=== PATIENT | female | born 1980 | race Caucasian/White ===

== ENCOUNTER 2020-10-05 12:50 | Emergency (ER) | payer OTHER, SELFPAY ==
[2020-10-05 12:58] VITALS: BP 111/84; PULSE 99; RESP 16; TEMP 36.8; O2SAT 100
[2020-10-05 13:13] LABS: Add Urine Microscopic? YES; Appearance Urine Cloudy (Clear); Bilirubin Urine Negative (Negative); Blood Urine Negative (Negative); Color Urine Amber (Yellow); Glucose Urine UA Negative (Negative); Ketones Urine Trace mg/dL (Negative); Leukocyte Esterase Ur 1+ LEU/UL (Negative); Mucus Urine Heavy /lpf; Nitrate Urine Negative (Negative); Protein Urine 2+ mg/dL (Negative); Specific Grav Ur 1.033 (1.001-1.035); Squamous Epithelial Cell Urine Moderate /hpf (Few); Urobilinogen Urine Negative mg/dL (<2.0)
--- NOTE | 2020-10-05 13:16 | ED.FEMALEGU ---
HPI - Female Genitourinary General Chief complaint: Urogenital-Female Stated complaint: uti symptoms Time Seen by Provider: 10/05/20 12:57 History of Present Illness HPI Narrative: Patient is a 40-year-old female who presents ER for dysuria beginning this morning. Does not report urinary frequency or urgency or fever. No vaginal discharge or bleeding. No rash or swelling around her vagina. Has not found any aggravating or alleviating factors. Patient has no concerns for STI. No lower abdominal pain. Review of Systems Constitutional: Constitutional: Denies chills Comments: No fevers Gastrointestinal: Gastrointestinal: Denies abdominal pain, Denies nausea and Denies vomiting Genitourinary: Genitourinary: Denies abnormal vaginal bleeding, Denies hematuria, Denies nocturia, Denies genital lesions, Reports dysuria, Denies flank pain and Denies vaginal discharge PMFSH Past Medical History Medical History (Updated 10/05/20 @ 13:44 by Willian Ambrocio MD) Healthy female adult Surgical History Surgical History (Updated 10/05/20 @ 13:17 by Willian Ambrocio MD) History of cholecystectomy Exam Narrative: Exam Narrative: GENERAL: Uncomfortable-appearing, well-nourished, and in no acute distress. HEAD: Normocephalic, atraumatic. CHEST: Clear to auscultation. No respiratory distress. HEART: Regular rate and rhythm. Normal peripheral pulses. ABDOMEN: Soft, nontender, nondistended, no CVA tenderness. EXTREMITIES: Normal range of motion. No edema. NEURO: Alert and oriented x3. PSYCH: Normal mood and affect. Course Vital Signs Vital signs: Vital Signs Temperature 98.2 F 10/05/20 12:58 Pulse Rate 99 10/05/20 12:58 Respiratory Rate 16 10/05/20 12:58 Blood Pressure 111/84 10/05/20 12:58 Pulse Oximetry 100 10/05/20 12:58 Temperature 98.2 F 10/05/20 12:58 Pulse Rate 99 10/05/20 12:58 Respiratory Rate 16 10/05/20 12:58 Blood Pressure 111/84 10/05/20 12:58 Pulse Oximetry 100 10/05/20 12:58 MDM - Female Genitourinary Lab Data Labs: Lab Results 10/05/20 Range/Units 13:03 Urine Color Mya (Yellow) Urine Appearance Cloudy H (Clear) Urine pH 5.0 (5.0-9.0) Ur Specific Sellers 1.033 (1.001-1.035) Urine Protein 2+ H (Negative) mg/dL Urine Glucose (UA) Negative (Negative) mg/dL Urine Ketones Trace (Negative) mg/dL Ur Blood (Man) Negative (Negative) Urine Nitrate Negative (Negative) Urine Bilirubin Negative (Negative) Urine Urobilinogen Negative (<2.0) mg/dL Leukocyte Esterase Rfl 1+ H (Negative) LEÓN/UL Urine RBC 6-10 H (0-2) /hpf Urine WBC 7-9 H /hpf Ur Squamous Epith Cells Moderate H (Few) /hpf Urine Mucus Heavy H /lpf UCG Bedside Result Negative Reference Range: Negative Urine Characteristics Clear Discharge Plan Discharge Clinical Impression: Urinary tract infection Patient Disposition: Home, Self-Care Condition: Stable Instructions: Antibiotic Form, Urinary Tract Infection in Women (ED) Additional Instructions: Return the ER if you have fever over 100.4 ?F, you are unable to urinate, you have increased lower abdominal discomfort, or you have other concerns. Prescriptions: New cephalexin 500 mg capsule 500 mg PO Q12H Qty: 10 RF: 0 Follow-up/Referrals: PHYSICIAN,ACCESS SERVICE REPRESENTATIVE [Primary Care Provider] - Evan Wood MD [Physician] - 1 Week
== END 2020-10-05 14:00 | disposition home or self-care (01) ==
LOC: ANHED 13:48
PROVIDERS: Emergency Provider Emergency Medicine
DX: N39.0 Urinary tract infection, site not specified (principal)
CPT/HCPCS: 81001; 81025; 87086; 99283

== ENCOUNTER 2020-10-12 01:02 | Emergency (ER) | payer OTHER, SELFPAY ==
[2020-10-12 01:48] VITALS: BP 98/75; PULSE 91; RESP 16; TEMP 36.9; O2SAT 100
--- NOTE | 2020-10-12 01:52 | ED.GENADULT ---
HPI - General Adult General Chief complaint: Vaginal Bleeding Stated complaint: vag bleed Time Seen by Provider: 10/12/20 01:10 Source: patient Mode of arrival: ambulatory Limitations: no limitations History of Present Illness HPI narrative: This is a 40 year old female who presents for evaluation of heavy vaginal bleeding. She states she started her menstrual cycle yesterday, and today it became heavy. Starting at 1 pm she reports changing her pad every 15-30 minutes. She reports she is passing large clots. Her menstrual cycle are normally every 28 days and it last 4 days. She reports having a normal cycle last month. She reports some fatigue and dizziness. She denies history of anemia or blood transfusion. She denies taking anticoagulation. Related Data Allergies Allergy/AdvReac Type Severity Reaction Status Date / Time ethinyl estradiol Allergy Hives Verified 10/12/20 01:56 [From NuvaRing] etonogestrel [From NuvaRing] Allergy Hives Verified 10/12/20 01:56 Sulfa (Sulfonamide Allergy Anaphylaxis Verified 10/12/20 01:56 Antibiotics) Review of Systems Review of Systems: All systems reviewed & are unremarkable except as noted in HPI and below PMFSH Past Medical History Medical History (Updated 10/13/20 @ 00:00 by Adam Martinez) Patient denies medical problems Social History Social History (Updated 10/12/20 @ 01:57 by Apurva Frank MD) Smoking status: Never smoker Exam Const: General: no acute distress and alert Orientation/consciousness: patient oriented x3 Eyes: EOM: EOMs intact bilaterally Resp: Effort & Inspection: normal respiratory effort and no retractions Auscultation: clear to auscultation bilaterally Cardio: Rate: regular rate Rhythm: regular rhythm Heart sounds: no murmurs GI: GI Palp: Yes Soft to palpation, No Tenderness to palpation present (GI) and No Guarding due to palpation present (GI) Auscultation: normal bowel sounds : Speculum Exam - Vagina: vaginal bleeding (removed small clot, minimal red blood oozing from cervix) Speculum Exam - Cervix: Cervical os closed Skin: General skin exam: normal color Rashes: no rashes Neuro: General: patient oriented x3, moves all extremities and No CN's II-XI intact bilaterally Psych: Mental Status: mental status grossly normal Affect: normal affect Course Reevaluation(s) Reevaluation #1: Patient states she feels much better. Her bleeding has subsided. I reviewed labs. No transfusion needed at this time. She will follow up with food safety officer tomorrow. She denies having any additional questions or concerns. Date: 10/12/20 Time: 03:42 Vital Signs Vital signs: Vital Signs Temperature 98.4 F 10/12/20 01:48 Pulse Rate 91 10/12/20 01:48 Respiratory Rate 16 10/12/20 01:48 Blood Pressure 98/75 L 10/12/20 01:48 Pulse Oximetry 100 10/12/20 01:48 Temperature 98.4 F 10/12/20 01:48 Pulse Rate 78 10/12/20 03:18 Respiratory Rate 16 10/12/20 03:18 Blood Pressure 99/68 L 10/12/20 03:18 Pulse Oximetry 100 10/12/20 03:18 Medical Decision Making Vital Signs Vital Signs: Vital Signs Temperature 98.4 F 10/12/20 01:48 Pulse Rate 91 10/12/20 01:48 Respiratory Rate 16 10/12/20 01:48 Blood Pressure 98/75 L 10/12/20 01:48 Pulse Oximetry 100 10/12/20 01:48 Temperature 98.4 F 10/12/20 01:48 Pulse Rate 78 10/12/20 03:18 Respiratory Rate 16 10/12/20 03:18 Blood Pressure 99/68 L 10/12/20 03:18 Pulse Oximetry 100 10/12/20 03:18 Lab Data Lab results reviewed: Yes I reviewed the patient's lab results. Result diagrams: 10/12/20 02:32 Labs: Lab Results 10/12/20 10/12/20 10/12/20 Range/Units 02:32 02:32 02:32 WBC 8.3 (4.5-10.0) K/mm3 RBC 4.18 L (4.2-5.4) M/mm3 Hgb 11.7 L (12.0-15.0) g/dL Hct 35.3 L (37.0-47.0) % MCV 84.4 (80-100) fl MCH 28.0 (26-34) pg MCHC 33.1 (32-36) g/dl RDW 13.4 (
[2020-10-12 02:00] VITALS: BP 102/72; PULSE 91
[2020-10-12 02:02] VITALS: BP 93/73; PULSE 105
[2020-10-12 02:04] VITALS: BP 97/85; PULSE 116
[2020-10-12] MEDS: IBUPROFEN 400 MG TABLET 800 MG PO (02:13)
[2020-10-12 02:41] LABS: Basophils Percent Auto 0.4 % (0.2-1.2); Eosinophils Absolute Auto 0.3 K/mm3 (0-0.3); Eosinophils Percent Auto 3.9 % (0-4.4); Hematocrit 35.3 % (37.0-47.0); Hemoglobin 11.7 g/dL (12.0-15.0); Immature Granulocyte Absolute 0.04 K/mm3 (0.00-0.031); Immature Granulocyte Percent A 0.5 % (0-0.5); Lymphocytes Absolute Auto 1.96 K/mm3 (0.9-3.2); Lymphocytes Percent Auto 23.8 % (18.3-44.2); Mean Corpuscular HGB Conc 33.1 g/dl (32-36); Mean Corpuscular Volume 84.4 fl (80-100); Mean Platelet Volume 10.3 fl (7.4-10.4); Monocytes Absolute Auto 0.6 K/mm3 (0.1-0.6); Monocytes Percent Auto 7.8 % (2.6-8.5); Neutrophils Absolute Auto 5.3 K/mm3 (1.3-6.7); Neutrophils Percent Auto 63.6 % (45.5-73.1); Platelet Count Result 333 k/mm3 (150-375); Red Blood Count 4.18 M/mm3 (4.2-5.4); Red Cell Distribution Width 13.4 % (11.5-14.5); White Blood Count 8.3 K/mm3 (4.5-10.0)
[2020-10-12] MEDS: LACTATED RINGERS 1,000 ML 999 ML IV CONT (03:08)
[2020-10-12 03:18] VITALS: BP 99/68; PULSE 78; RESP 16; O2SAT 100
[2020-10-12 03:29] LABS: Prothrombin Time 13.8 Seconds (11.1-14.7)
[2020-10-12 03:30] LABS: Partial Thromboplastin Time 34.2 SECONDS (22.3-36.8)
--- NOTE | 2020-10-29 05:16 | PC.NURSE ---
LATE ENTRY LR stopped prior to discharge. This note is being entered to document information to the patient's record. The following information was omitted on [10/29/20], by [CARLOS Lemon].
== END 2020-10-12 03:59 | disposition home or self-care (01) ==
PROVIDERS: Emergency Provider General Practice
DX: N92.0 Excessive and frequent menstruation with regular cycle (principal)
CPT/HCPCS: 36415; 81025; 85025; 85610; 85730; 86850; 86900; 86901; 96360; 99283; A9270; J7120

== ENCOUNTER 2021-01-02 13:04 | Emergency (ER) | payer OTHER, SELFPAY ==
[2021-01-02 13:13] VITALS: BP 119/77; PULSE 110; RESP 18; TEMP 37.2; O2SAT 100
[2021-01-02 13:24] VITALS: BP 119/77; PULSE 110; RESP 18; TEMP 37.2; O2SAT 100
--- NOTE | 2021-01-02 13:37 | ED.DIZZY ---
HPI - Dizziness General Chief Complaint: Dizziness Stated Complaint: sob Source: patient and RN notes reviewed Mode of arrival: ambulatory History of Present Illness HPI Narrative: This is a 40-year-old female who presented to urgent care with complaints of dizziness near syncope episode, shortness of breath and feverish. According to patient approximately 5 time within the last 12 months she has had a syncopal episode. She notes that when she woke up she was on the floor she did note that her boyfriend was around on a couple occasions when she cannot recall if she hit her head. She just assumed that it was due to dehydration or because she had ate. Patient notes that she did eat and drink water today in her condition did not improve. She does not have a primary care physician to follow-up with. During our assessment while palpating her abdomen she experience epigastric pain with rebound tenderness she also noted that she had been experiencing this for quite some time now. She denies any nausea vomiting ,hematemesis, visual disturbance, unusual headaches, she does have a history of migraine headaches. Patient is being transferred to [facility] for further diagnostic testing accepted by Dr. Ambrocio spoke with Juliette RN Patient advised that it would not be safe for her to transport herself refused EMS services MD elicited complaint: dizziness and near syncope Related Data Home Medications Medication Instructions Recorded Confirmed cetirizine [Zyrtec] 10 mg PO DAILY 01/02/21 01/02/21 Allergies Allergy/AdvReac Type Severity Reaction Status Date / Time Sulfa (Sulfonamide Allergy Other Verified 01/02/21 13:23 Antibiotics) Review of Systems Review of Systems: Narrative: A 14 organ system Review of Systems was performed and pertinent positives included in the HPI, otherwise remaining ROS is negative. All systems reviewed & are unremarkable except as noted in HPI and below [facility] Past Medical History Medical History (Updated 01/02/21 @ 13:37 by DIANA Alvarado) Healthy female adult Surgical History Surgical History (Updated 10/05/20 @ 13:17 by Willian Ambrocio MD) History of cholecystectomy Family History Family History (Updated 01/02/21 @ 13:48 by DIANA Alvarado) Other Family history non-contributory Exam Narrative: Exam Narrative: GENERAL: Fatigued, in no apparent distress. HEAD: normocephalic, atraumatic. EYES: PERRL. Sclera clear/white. Vision is grossly intact. EARS: External ears normal, auditory canals clear and without drainage, TMs normal without perforation. Hearing grossly intact. NOSE: External nose normal with no obvious nasal discharge, nares without redness, no rhinorrhea. THROAT: Mucous membranes moist, posterior pharynx clear. NECK: Neck supple, non-tender without lymphadenopathy, masses or thyromegaly. CARDIOVASCULAR: Regular rate and rhythm without murmurs, gallops, or rubs. RESPIRATORY: Clear to auscultation. Breath sounds equal bilaterally. No wheezes, rales, or rhonchi. GASTROINTESTINAL: Abdomen soft, epigastric rebound tenderness, nondistended. Bowel sounds are active. No hepato-splenomegaly, or palpable masses. No guarding. SKIN: warm, intact with no suspicious lesions or rash, good texture and turgor. NEURO: awake, alert, and oriented to person, place and time. There were no obvious focal neurologic abnormalities. Steady gait EXTREMITIES: Normal range of motion. No edema. No calf tenderness. Negative Homans sign bilaterally. BACK: Nontender without deformity or crepitance. No flank tenderness. Course Course Emergency Course: Patient will transport herself to [facility] she did receive EMS services Vital Signs Vital signs: Vital Signs Temperature 98.9 F 01/02/21 13:13 Pulse Rate 110 H 01/02/21 13:13 Respiratory Rate 18 01/02/21 13:13 Blood Pressure 119/77 01/02/21 13:13 Pulse Oximetry 100 01/02/21 13:13 Temperature 98.9
== END 2021-01-02 13:50 | disposition short-term general hospital (02) ==
PROVIDERS: Emergency Provider Nurse Practitioner
DX: R55 Syncope and collapse (principal)
CPT/HCPCS: 99212; G0463

== ENCOUNTER 2021-01-02 14:04 | Emergency (ER) | payer OTHER, SELFPAY ==
[2021-01-02] VITALS (17 sets, daily range): BP systolic 96–111; BP diastolic 70–76; PULSE 80–100; RESP 9–20; TEMP 37.1; O2SAT 100
--- NOTE | ~2021-01-02 | CT_ITS ---
EXAMINATION: CT brain wo con EXAM DATE: 01/02/2021 20:31 INDICATION: Dizziness. TECHNIQUE: Spiral CT of the head was performed without contrast. Axial, coronal and sagittal images were reviewed. The dose-length product (DLP) for this examination was 529.67 mGy-cm. The exposure w as tailored according to patient size, and iterative reconstruction (ASIR) was used as additional dos e reduction technique. There is no prior study for comparison. FINDINGS: There is no acute intraparenchymal hemorrhage. No evidence of intraparenchymal brain mass lesion. No evidence of acute infarction. There is no mass effect or midline shift. The ventricles are normal in size. There are no extra-axial collections. There are no acute calvarial fractures. T he orbits are unremarkable. Soft tissue is unremarkable. Mild ethmoid mucoperiosteal thickening. IMPRESSION: 1. No acute intracranial findings. Reviewed, dictated and finalized at location A.
--- NOTE | ~2021-01-02 | CT_ITS ---
EXAMINATION: CT abdomen pelvis w con EXAM DATE: 01/02/2021 20:31 INDICATION: Generalized abdominal pain. TECHNIQUE: Spiral CT of the abdomen and pelvis was performed following intravenous injection of 100 m L Omnipaque 350. Axial, coronal and sagittal images of the abdomen and pelvis were reviewed. The do se-length product (DLP) for this examination was 245.50 mGy-cm. The exposure was tailored according to patient size (auto mA exposure control), and iterative reconstruction (ASIR) was used as additiona l dose reduction technique. There is no prior study for comparison. FINDINGS: The liver, spleen, adrenal glands and pancreas are unremarkable. There are cholecystectomy clips. Portal and splenic veins are patent. Kidneys enhance symmetrically. There is no hydronephr osis. The uterus is unremarkable. The bladder is unremarkable. Probable 11 mm Bartholin's gland d uct cyst, right of midline. Higher up there is either a nabothian cyst or Yara's duct cyst measuri ng about 2.0 cm. There is no retroperitoneal or pelvic lymphadenopathy. The appendix is normal. The stomach and small bowel are unremarkable. There is expected amount of c olonic stool. No free intraperitoneal gas. The heart is normal in size. There are no pericardial or pleural effusions. The lung bases are unremarkable. The bones are unremarkable. IMPRESSION: 1. No acute intra-abdominal findings. 2. Probable right-sided Bartholin's gland duct cyst. 3. Nabothian cysts versus Yara's duct cyst. Reviewed, dictated and finalized at location A.
[2021-01-02 14:42] LABS: Basophils Percent Auto 0.3 % (0.2-1.2); Eosinophils Absolute Auto 0.1 K/mm3 (0-0.3); Hematocrit 29.3 % (37.0-47.0); Immature Granulocyte Absolute 0.03 K/mm3 (0.00-0.031); Immature Granulocyte Percent A 0.4 % (0-0.5); Lymphocytes Absolute Auto 1.64 K/mm3 (0.9-3.2); Lymphocytes Percent Auto 21.4 % (18.3-44.2); Mean Corpuscular HGB Conc 30.7 g/dl (32-36); Mean Corpuscular Hemoglobin 24.7 pg (26-34); Mean Corpuscular Volume 80.3 fl (80-100); Mean Platelet Volume 9.5 fl (7.4-10.4); Monocytes Absolute Auto 0.4 K/mm3 (0.1-0.6); Monocytes Percent Auto 5.7 % (2.6-8.5); Neutrophils Absolute Auto 5.5 K/mm3 (1.3-6.7); Neutrophils Percent Auto 71.2 % (45.5-73.1); Platelet Count Result 435 k/mm3 (150-375); Red Blood Count 3.65 M/mm3 (4.2-5.4); Red Cell Distribution Width 13.9 % (11.5-14.5); White Blood Count 7.7 K/mm3 (4.5-10.0)
[2021-01-02 14:50] LABS: Alanine Aminotransferase 46 U/L (4-35); Albumin Level 4.5 g/dL (3.5-5.1); Alkaline Phosphatase 239 U/L (38-126); Anion Gap 8 mmol/L (8-16); Aspartate Amino Transferase 62 U/L (14-36); Bilirubin,Total 0.3 mg/dL (0.2-1.3); Blood Urea Nitrogen 8 mg/dL (7-17); Calcium 9.1 mg/dL (8.4-10.2); Carbon Dioxide 27 mmol/L (22-30); Chloride 104 mmol/L (98-107); Estimated CRCL calculation 56 ml/min; Estimated Glomerular Filt Rate > 60; Glucose 129 mg/dL (65-105); Lipase 88 U/L (23-300); Potassium 3.9 mmol/L (3.4-5.0); Sodium 139 mmol/L (137-145)
[2021-01-02 16:04] LABS: Add Urine Microscopic? NO; Appearance Urine Clear (Clear); Bilirubin Urine Negative (Negative); Blood Urine Negative (Negative); Color Urine Yellow (Yellow); Glucose Urine UA Negative (Negative); Ketones Urine Negative (Negative); Leukocyte Esterase Ur Negative LEU/UL (Negative); Nitrate Urine Negative (Negative); Protein Urine Negative (Negative); Urobilinogen Urine Negative mg/dL (<2.0)
--- NOTE | 2021-01-02 20:21 | ED.GENADULT ---
HPI - General Adult General Chief complaint: Unspecified Stated complaint: near syncope, abd pain Time Seen by Provider: 01/02/21 18:45 Source: patient History of Present Illness HPI narrative: Patient is 40 y/o female complaining feel dizzy and almost passed out. She states that she was driving when this happened a few hours ago. She felt like everything just went under. She did not pass out completely . She feels better currently. She states that she also has been having abdominal pain for several months. Related Data Home Medications Medication Instructions Recorded Confirmed cetirizine [Zyrtec] 10 mg PO DAILY 01/02/21 01/02/21 ferrous sulfate 250 mg PO 01/02/21 Allergies Allergy/AdvReac Type Severity Reaction Status Date / Time ethinyl estradiol Allergy Hives Verified 01/02/21 17:57 [From NuvaRing] etonogestrel [From NuvaRing] Allergy Hives Verified 01/02/21 17:57 Sulfa (Sulfonamide Allergy Other Verified 01/02/21 17:57 Antibiotics) Review of Systems Constitutional: Constitutional: Denies chills, Denies fever(s), Denies headache(s) and Denies weakness Eyes: Eyes: Denies blurry vision and Reports other visual disturbances ENT: Denies headache(s), Denies neck pain and Reports other Cardiovascular: Cardiovascular: Denies chest pain and Denies dyspnea Respiratory: Respiratory: Denies cough and Denies dyspnea Gastrointestinal: Gastrointestinal: Reports abdominal pain, Denies diarrhea, Denies nausea and Denies vomiting Genitourinary: Genitourinary: Denies hematuria and Denies dysuria Musculoskeletal: Musculoskeletal: Denies back pain and Denies neck pain Neurologic: Reports dizziness, Denies headache(s) and Denies weakness [facility] Past Medical History Medical History Healthy female adult Surgical History Surgical History History of cholecystectomy Family History Family History Other Family history non-contributory Exam Const: General: no acute distress and well developed Orientation/consciousness: oriented to person, oriented to place, oriented to time and patient oriented x3 HENMT: Head: normocephalic Ears: external ears normal General nose exam: Normal external nose present Eyes: General: appearance normal, both eyes and all related structures Conjunctivae: conjunctivae normal Neck: Neck: normal visual inspection and full ROM Chest: Chest palpation & inspection: normal inspection of the chest and no tenderness Resp: Effort & Inspection: normal respiratory effort Auscultation: clear to auscultation bilaterally Cardio: Rate: regular rate Rhythm: regular rhythm GI: GI Palp: No abdominal tenderness and Yes Soft to palpation Skin: General skin exam: normal color and turgor normal Neuro: General: oriented to person, oriented to place, oriented to time and patient oriented x3 Cranial nerves: Yes CN's II-XII intact bilaterally Cognition (Neuro): normal cognition Speech: normal speech Motor exam (neuro): 5/5 motor strength present throughout Sensory Exam: normal sensation Coordination: [id number] test normal and [id number] test normal Extrem: General: normal to inspection, full ROM and no pedal edema Psych: Appearance: grossly normal Mental Status: mental status grossly normal Affect: normal affect Course Reevaluation(s) Reevaluation #1: Discussed with patient about lab and CT results. Informed patient about abnormal LFT's. She states that she is aware of this. Instructed patient to follow up with PCP for further evaluation. Date: 01/02/21 Time: 20:50 Vital Signs Vital signs: Vital Signs Temperature 37.1 C 01/02/21 14:23 Pulse Rate 100 01/02/21 14:23 Respiratory Rate 16 01/02/21 14:23 Blood Pressure 111/76 01/02/21 14:23 Pulse Oximetry 100 01/02/21 14:23 Temperature 37.1 C 01/02
== END 2021-01-02 21:55 | disposition home or self-care (01) ==
PROVIDERS: Emergency Medicine; Emergency Provider Emergency Medicine
DX: R42 Dizziness and giddiness (principal)
CPT/HCPCS: 36415; 70450; 74177; 80053; 81003; 81025; 83690; 85025; 99284; Q9967

== ENCOUNTER 2021-12-07 16:44 | Emergency (ER) | payer SELFPAY ==
--- NOTE | ~2021-12-07 | CT_ITS ---
EXAMINATION: CT abdomen pelvis wo con DATE: 12/07/2021 19:32 INDICATION: Epigastric pain for 2 days. Nausea and vomiting. TECHNIQUE: Computed tomography (CT) of the abdomen and pelvis was performed without intravenous contr ast. Automated exposure control and iterative reconstruction technique were employed. Exam dose: 319 .11 mGy-cm total exam DLP. COMPARISON: 01/02/2021 CT abdomen pelvis FINDINGS: Normal heart size. No pericardial or pleural effusion. The lung bases are clear. Status post cholecystectomy. No hepatic, splenic, pancreatic, and adrenal or renal space-occupying ma ss lesion is detected. No bile duct or pancreatic duct dilatation. No urinary tract calculus or hydroureteronephrosis. The urinary bladder is unremarkable. Stable right probable Bartholin's gland duct cyst and stable approximately 2.2 cm cyst in the uterine cervical area, possibly nabothian cysts. Uterine cervical prominence is likely stable; recommend cli nical correlation to exclude any possible cervical neoplasm. Minimal diverticulosis of the sigmoid colon; no CT evidence of diverticulitis. No evidence of appendi citis. No bowel obstruction or intraperitoneal free air. Normal caliber of the abdominal aorta. No intraperitoneal or retroperitoneal or pelvic mass lesion or adenopathy or ascites. Small fat-containing umbilical hernia. Included skeletal structures are unremarkable. IMPRESSION: No significant change compared to 01/02/2021 Reviewed, dictated and finalized at Location [facility]. Reviewed, dictated and finalized at location A.
--- NOTE | ~2021-12-07 | US_ITS ---
US right upper quadrant DATE: 12/07/2021 17:56 INDICATION: Epigastric abdominal pain TECHNIQUE: Real-time imaging and Doppler analysis of the liver, pancreas and gallbladder fossa COMPARISON: None FINDINGS: The gallbladder is surgically absent. No hepatic or pancreatic space-occupying mass lesion is evident. Normal hepatopedal portal venous deshawn w direction. The common bile duct measures 3.3 mm, normal. IMPRESSION: Status post cholecystectomy Reviewed, dictated and finalized at Location [facility]. Reviewed, dictated and finalized at location A. IMPRESSION: Status post cholecystectomy
[2021-12-07 17:07] VITALS: BP 110/82; PULSE 95; RESP 20; TEMP 36.7; O2SAT 99
[2021-12-07 17:11] LABS: Basophils Percent Auto 0.4 % (0.2-1.2); Eosinophils Absolute Auto 0.2 K/mm3 (0-0.3); Eosinophils Percent Auto 1.6 % (0-4.4); Hematocrit 41.5 % (37.0-47.0); Immature Granulocyte Absolute 0.03 K/mm3 (0.00-0.031); Immature Granulocyte Percent A 0.3 % (0-0.5); Lymphocytes Absolute Auto 1.68 K/mm3 (0.9-3.2); Mean Corpuscular HGB Conc 31.3 g/dl (32-36); Mean Corpuscular Hemoglobin 25.4 pg (26-34); Mean Corpuscular Volume 81.2 fl (80-100); Mean Platelet Volume 10.6 fl (7.4-10.4); Monocytes Absolute Auto 0.7 K/mm3 (0.1-0.6); Monocytes Percent Auto 7.5 % (2.6-8.5); Neutrophils Absolute Auto 6.7 K/mm3 (1.3-6.7); Neutrophils Percent Auto 72.2 % (45.5-73.1); Platelet Count Result 321 k/mm3 (150-375); Red Blood Count 5.11 M/mm3 (4.2-5.4); Red Cell Distribution Width 13.8 % (11.5-14.5); White Blood Count 9.3 K/mm3 (4.5-10.0)
[2021-12-07 17:14] LABS: Add Urine Microscopic? NO; Appearance Urine Clear (Clear); Bilirubin Urine Negative (Negative); Blood Urine Negative (Negative); Color Urine Yellow (Yellow); Glucose Urine UA Negative (Negative); Ketones Urine Negative (Negative); Leukocyte Esterase Ur Negative LEU/UL (Negative); Nitrate Urine Negative (Negative); Protein Urine Negative (Negative); Specific Grav Ur 1.025 (1.001-1.035); Urobilinogen Urine 0.2 mg/dL (<2.0); pH Urine 5.5 (5.0-9.0)
[2021-12-07 17:21] LABS: Alanine Aminotransferase 87 U/L (6-35); Albumin Level 4.8 g/dL (3.5-5.1); Alkaline Phosphatase 205 U/L (38-126); Anion Gap 8 mmol/L (8-16); Aspartate Amino Transferase 63 U/L (14-36); Bilirubin,Total 0.4 mg/dL (0.2-1.3); Blood Urea Nitrogen 9 mg/dL (7-17); Calcium 9.2 mg/dL (8.4-10.2); Carbon Dioxide 23 mmol/L (22-30); Chloride 106 mmol/L (98-107); Estimated CRCL calculation 89 ml/min; Estimated Glomerular Filt Rate > 60; Glucose 97 mg/dL (65-110); Lipase 128 U/L (23-300); Potassium 4.1 mmol/L (3.4-5.0); Sodium 137 mmol/L (137-145)
--- NOTE | 2021-12-07 17:39 | ED.ABDPAIN ---
HPI - Abdominal Pain General Chief Complaint: Abdominal Pain Stated Complaint: ABD PAIN X1D Time Seen by Provider: 12/07/21 17:34 Source: patient and RN notes reviewed Mode of arrival: ambulatory Limitations: no limitations History of Present Illness HPI narrative: This is a 41 year old female who presents for evaluation of epigastric abdominal pain that started 24 hours ago. She reports yesterday morning she noticed epigastric pain that is worse with position. She states if she moves her core her pain worsens. She has associated nausea but denies vomiting, fever, chills. This pain radiates to bilateral upper quadrants . She states this pain feels similar to when she was diagnosed with GERD and PUD due to taking significant ibuprofen. She states she does not take as much ibuprofen. She was taking ibuprofen until 1 week ago. She denies melena. She has taken tums and omeprazole without improvement of her pain. Related Data Home Medications Medication Instructions Recorded Confirmed cetirizine 10 mg capsule (Zyrtec) 10 mg PO DAILY 01/02/21 01/02/21 ferrous sulfate 250 mg 250 mg PO 01/02/21 capsule,extended release Allergies Allergy/AdvReac Type Severity Reaction Status Date / Time ethinyl estradiol Allergy Hives Verified 12/07/21 19:37 [From NuvaRing] etonogestrel [From NuvaRing] Allergy Hives Verified 12/07/21 19:37 Sulfa (Sulfonamide Allergy Anaphylaxis Verified 12/07/21 19:37 Antibiotics) Review of Systems Review of Systems: All systems reviewed & are unremarkable except as noted in HPI and below Constitutional: Constitutional: Denies chills and Denies fatigue Cardiovascular: Cardiovascular: Denies chest pain and Denies rapid heart rate Respiratory: Respiratory: Denies chest congestion and Denies cough Gastrointestinal: Gastrointestinal: Reports abdominal pain, Reports heartburn, Denies diarrhea and Reports nausea Genitourinary: Genitourinary: Denies abnormal vaginal bleeding Musculoskeletal: Musculoskeletal: Denies back pain PMF Past Medical History Medical History (Updated 12/07/21 @ 19:05 by Apurva Frank MD) GERD (gastroesophageal reflux disease) Healthy female adult Patient denies medical problems Surgical History Surgical History (Updated 09/13/21 @ 13:23 by Sophia Mistry) History of cholecystectomy Family History Family History (System 09/13/21 @ 13:23 by Sophia Mistry) Other Family history non-contributory Social History Social History (System 09/13/21 @ 13:23 by Sophia Mistry) Smoking status: Never smoker Course Reevaluation(s) Reevaluation #1: Patient reports that GI cocktail took the edge off. She still has abdominal pain. On repeat exam, she has voluntary guarding. Will order pain medications and get CT scan. I will discuss case with Dr. Gonzales to take over care. Date: 12/07/21 Time: 19:03 Vital Signs Vital signs: Vital Signs Temperature 36.7 C 12/07/21 17:07 Pulse Rate 95 12/07/21 17:07 Respiratory Rate 20 12/07/21 17:07 Blood Pressure 110/82 12/07/21 17:07 Pulse Oximetry 99 12/07/21 17:07 Oxygen Delivery Room Air 12/07/21 17:07 Temperature 36.7 C 12/07/21 17:07 Pulse Rate 91 12/07/21 19:35 Respiratory Rate 18 12/07/21 19:35 Blood Pressure 109/73 12/07/21 19:35 Pulse Oximetry 98 12/07/21 19:35 Oxygen Delivery Room Air 12/07/21 17:07 MDM - Abdominal Pain Lab Data Attestation: I reviewed the patient's lab results. Result diagrams: 12/07/21 16:57 12/07/21 16:57 Labs: Lab Results 12/07/21 12/07/21 12/07/21 Range/Units 16:57 16:57 17:01 WBC 9.3 (4.5-10.0) K/mm3 RBC 5.11 (4.2-5.4) M/mm3 Hgb 13.0 D (12.0-15.0) g/dL Hct 41.5 (37.0-47.0) % MCV 81.2 (80-100) fl MCH 25.4 L (26-34) pg MCHC 31.3 L (32-36) g/dl RDW 13.8 (11.5-14.5) % Plt Count 321 (150-375) k/mm3 MPV 10.6 H (7.4-10.4)
[2021-12-07] MEDS: BELLADONNA ALK/PHENOB ELIX 10 ML, MAG HYDROX/ALUMINUM HYD/SIMETH 30 ML, LIDOCAINE HCL 2... PO (18:35)
[2021-12-07] MEDS: PANTOPRAZOLE SODIUM IV 40 MG VIAL IV PUSH (18:35)
--- NOTE | 2021-12-07 18:35 | PC.NURSE ---
pt refusing zofran because it gives her headaches.
[2021-12-07] MEDS: DICYCLOMINE HCL INJ 20 MG/2 ML VIAL IM (18:41)
[2021-12-07] MEDS: MORPHINE SULFATE (*CRX) 4 MG/ML INJ IV PUSH (19:21)
[2021-12-07 19:35] VITALS: BP 109/73; PULSE 91; RESP 18; O2SAT 98
[2021-12-07 21:12] VITALS: BP 101/70; PULSE 60; RESP 16; O2SAT 99
== END 2021-12-07 21:15 | disposition home or self-care (01) ==
PROVIDERS: Emergency Medicine; Emergency Provider Emergency Medicine
DX: R10.13 Epigastric pain (principal); K21.9 Gastro-esophageal reflux disease without esophagitis; Z87.11 Personal history of peptic ulcer disease
CPT/HCPCS: 36415; 74176; 76705; 80053; 81003; 81025; 83690; 85025; 96372; 96374; 96375; 99284; A9270; C9113; J0500; J2270

== ENCOUNTER 2022-01-17 12:37 | Emergency (ER) | payer OTHER, SELFPAY ==
[2022-01-17 12:51] VITALS: BP 106/71; PULSE 96; RESP 18; TEMP 36.6; O2SAT 98
--- NOTE | 2022-01-17 13:09 | ED.URI ---
HPI - URI/Sore Throat General Chief Complaint: Upper Respiratory Infection Stated Complaint: fatigue,headache,runny nose Time Seen by Provider: 01/17/22 13:10 History of Present Illness HPI Narrative: Khadra Martinez is a 41 yo female with GERD [facility] complaining of fatigue waves of not feeling well having a bad headache general body aches, started yesterday. She has coworkers that are currently diagnosed with COVID. They do not have a masking policy at their facility. She is not vaccinated Related Data Home Medications Medication Instructions Recorded Confirmed No Home Medications 01/17/22 01/17/22 Allergies Allergy/AdvReac Type Severity Reaction Status Date / Time ethinyl estradiol Allergy Hives Verified 01/17/22 12:59 [From NuvaRing] etonogestrel [From NuvaRing] Allergy Hives Verified 01/17/22 12:59 Sulfa (Sulfonamide Allergy Anaphylaxis Verified 01/17/22 12:59 Antibiotics) Review of Systems Review of Systems: CONSTITUTIONAL: Denies fever, chills, sweats. On and off headache, fatigue EYES: Denies visual changes, redness, discharge. ENT: Mild rhinorrhea, mild congestion, sore throat, otalgia. CARDIOVASCULAR: Denies chest pain, palpitations, edema. RESPIRATORY: Denies dyspnea, wheezing, cough GASTROINTESTINAL: Denies abdominal pain, nausea, vomiting, diarrhea. GENITOURINARY: Denies dysuria, hematuria, abnormal discharge SKIN: Denies rash or itching. NEUROLOGIC: Denies numbness, or focal weakness. PSYCHIATRIC: Denies anxiety or depression. PMFSH Past Medical History Medical History GERD (gastroesophageal reflux disease) Healthy female adult Patient denies medical problems Surgical History Surgical History History of cholecystectomy Family History Family History Other Family history non-contributory Social History Social History Smoking status: Never smoker Comments At time of signature, I agree with nursing past medical, surgical, social and family history. There is no relevant family history pertinent to the presenting complaint. Exam Narrative: GENERAL: This is a well-nourished, well-developed patient, in mild distress. HEAD: normocephalic, atraumatic. EYES: Sclera clear/white. Vision is grossly intact. EARS: External ears normal, no ear pain- hearing grossly intact. NOSE: External nose normal with nasal discharge, nares without redness, has rhinorrhea. THROAT: Mucous membranes moist, NECK: Neck supple, non-tender CARDIOVASCULAR: Regular rate and rhythm without murmurs, gallops, or rubs. RESPIRATORY: Clear to auscultation. Breath sounds equal bilaterally. No wheezes, rales, or rhonchi. GASTROINTESTINAL: Abdomen soft, non-tender, SKIN: warm, intact with no suspicious lesions or rash, good texture and turgor. NEURO: awake, alert, and oriented to person, place and time. There were no obvious focal neurologic abnormalities. Steady gait EXTREMITIES: Normal range of motion. Complaining of general body aches BACK: Nontender without deformity Course Course Emergency Course: Patient comes to [facility] with fatigue not feeling well since yesterday he works with colleagues that have COVID and she is not vaccinated and they have no mask Rapid is negative for COVID sent for PCR Discussed isolation and hydration and management of symptoms Level of Care: Express Care Visit Vital Signs Vital signs: Vital Signs Temperature 97.9 F 01/17/22 12:51 Pulse Rate 96 01/17/22 12:51 Respiratory Rate 18 01/17/22 12:51 Blood Pressure 106/71 01/17/22 12:51 Pulse Oximetry 98 01/17/22 12:51 Oxygen Delivery Room Air 01/17/22 12:51 Temperature 97.9 F 01/17/22 12:51 Pulse Rate 96 01/17/22 12:51 Respiratory Rate 18 01/17/22 12:51
[2022-01-17 20:02] LABS: SARS-CoV-2 RNA PCR Negative
== END 2022-01-17 13:27 | disposition home or self-care (01) ==
PROVIDERS: Emergency Provider Nurse Practitioner; PCP Pediatrics
DX: J06.9 Acute upper respiratory infection, unspecified (principal); Z20.822 Contact with and (suspected) exposure to COVID-19; K21.9 Gastro-esophageal reflux disease without esophagitis
CPT/HCPCS: 87426; 99213; C9803; G0463; U0003; U0005

== ENCOUNTER 2022-02-20 10:19 | Emergency (ER) | payer OTHER, SELFPAY ==
[2022-02-20 10:31] VITALS: BP 102/63; PULSE 106; RESP 16; TEMP 36.7; O2SAT 99
--- NOTE | 2022-02-20 10:40 | ED.GENADULT ---
HPI - General Adult General Chief complaint: Upper Respiratory Infection Stated complaint: headache,sorethroat,fever History of Present Illness HPI narrative: 41 y/o female. PMHx Non-contributory. Presents to [facility] today with acute complaints of fatigue, body aches, fever, SOLORZANO, and congestion at home in the past 24 hours. She tells me she has been positively exposed to her parents, as well as a son whom have been recently ill with similar issues. Parents tested positive for Covid viral illness. No focal weakness. No chest pain, palpitations, dyspnea. No GI upset N/V/D. Some relief w/home remedy. No additional acute c/o upon PE. Related Data Allergies Allergy/AdvReac Type Severity Reaction Status Date / Time ethinyl estradiol Allergy Hives Verified 02/20/22 10:42 [From NuvaRing] etonogestrel [From NuvaRing] Allergy Hives Verified 02/20/22 10:42 Sulfa (Sulfonamide Allergy Anaphylaxis Verified 02/20/22 10:42 Antibiotics) Review of Systems Review of Systems: CONSTITUTIONAL: Positive fever, chills, sweats. EYES: Denies visual changes, redness, discharge. ENT: Positive rhinorrhea, congestion. No sore throat, otalgia. CARDIOVASCULAR: Denies chest pain, palpitations, edema. RESPIRATORY: Denies dyspnea, wheezing. Positive cough GASTROINTESTINAL: Denies abdominal pain, nausea, vomiting, diarrhea. GENITOURINARY: Denies dysuria, hematuria, abnormal discharge SKIN: Denies rash or itching. MUSCULOSKELETAL: Denies acute back pain, joint pain, or myalgia. NEUROLOGIC: Denies numbness, or focal weakness. PSYCHIATRIC: Denies anxiety or depression. [facility] Past Medical History Medical History GERD (gastroesophageal reflux disease) Healthy female adult Patient denies medical problems Surgical History Surgical History History of cholecystectomy Family History Family History Other Family history non-contributory Social History Social History Smoking status: Never smoker Exam Narrative: GENERAL: This is a well-nourished, well-developed adult, in no apparent distress. HEAD: normocephalic, atraumatic. EYES: PERRL. Sclera clear/white. EARS: External ears normal, auditory canals clear and without drainage, TMs normal. NOSE: External nose normal. Positive Rhinorrhea, no obstruction, nares patent. THROAT: Mucous membranes moist, posterior pharynx clear. No exudates. NECK: Neck supple, non-tender without lymphadenopathy, masses or thyromegaly. CARDIOVASCULAR: Mild tachycardia, without murmurs, gallops, or rubs. RESPIRATORY: Clear to auscultation. Breath sounds equal bilaterally. No wheezes, rales. Upper airway Rhonchi, cleared with cough. GASTROINTESTINAL: Abdomen soft, non-tender, nondistended. Bowel sounds are active. No guarding. SKIN: warm, intact with no suspicious lesions or rash, good texture and turgor. NEURO: Alert, active, and age appropriate. No focal neurologic deficits. Course Course Level of Care: Express Care Visit Vital Signs Vital signs: Vital Signs Temperature 36.7 C 02/20/22 10:31 Pulse Rate 106 H 02/20/22 10:31 Respiratory Rate 16 02/20/22 10:31 Blood Pressure 102/63 02/20/22 10:31 Pulse Oximetry 99 02/20/22 10:31 Oxygen Delivery Room Air 02/20/22 10:31 Temperature 36.7 C 02/20/22 10:31 Pulse Rate 106 H 02/20/22 10:31 Respiratory Rate 16 02/20/22 10:31 Blood Pressure 102/63 02/20/22 10:31 Pulse Oximetry 99 02/20/22 10:31 Oxygen Delivery Room Air 02/20/22 10:31 Medical Decision Making [facility] Narrative Medical decision making narrative: -SARS Covid POSITIVE. -No hypoxemia, no respiratory distress. -Medication as directed. -Resume additional home remedies for other symptomatic reliefs. -PCP F/U
== END 2022-02-20 10:51 | disposition home or self-care (01) ==
PROVIDERS: Emergency Provider Nurse Practitioner Adult Health
DX: U07.1 COVID-19 (principal); K21.9 Gastro-esophageal reflux disease without esophagitis
CPT/HCPCS: 87426; 99213; C9803; G0463

== ENCOUNTER 2022-02-23 23:26 | Emergency (ER) | payer OTHER, SELFPAY ==
[2022-02-23 23:29] VITALS: BP 124/79; PULSE 107; RESP 20; TEMP 36.3; O2SAT 99
[2022-02-24] VITALS (7 sets, daily range): BP systolic 94–103; BP diastolic 65–76; PULSE 72; RESP 14; O2SAT 95–99
[2022-02-24 01:04] LABS: Basophils Percent Auto 0.2 % (0.2-1.2); Hematocrit 41.5 % (37.0-47.0); Hemoglobin 13.4 g/dL (12.0-15.0); Immature Granulocyte Absolute 0.01 K/mm3 (0.00-0.031); Immature Granulocyte Percent A 0.2 % (0-0.5); Lymphocytes Absolute Auto 1.35 K/mm3 (0.9-3.2); Lymphocytes Percent Auto 33.4 % (18.3-44.2); Mean Corpuscular HGB Conc 32.3 g/dl (32-36); Mean Corpuscular Volume 77.6 fl (80-100); Monocytes Absolute Auto 0.3 K/mm3 (0.1-0.6); Monocytes Percent Auto 7.9 % (2.6-8.5); Neutrophils Absolute Auto 2.4 K/mm3 (1.3-6.7); Neutrophils Percent Auto 58.3 % (45.5-73.1); Platelet Count Result 288 k/mm3 (150-375); Red Blood Count 5.35 M/mm3 (4.2-5.4); Red Cell Distribution Width 14.3 % (11.5-14.5)
[2022-02-24 01:06] LABS: Add Urine Microscopic? NO; Appearance Urine Clear (Clear); Bilirubin Urine Negative (Negative); Blood Urine Negative (Negative); Color Urine Yellow (Yellow); Glucose Urine UA Negative (Negative); Ketones Urine Negative (Negative); Leukocyte Esterase Ur Negative LEU/UL (Negative); Nitrate Urine Negative (Negative); Protein Urine Negative (Negative); Specific Grav Ur <= 1.005 (1.001-1.035); Urobilinogen Urine 0.2 mg/dL (<2.0)
[2022-02-24 01:14] LABS: Alanine Aminotransferase 43 U/L (6-35); Albumin Level 4.5 g/dL (3.5-5.1); Alkaline Phosphatase 178 U/L (38-126); Anion Gap 13 mmol/L (8-16); Aspartate Amino Transferase 42 U/L (14-36); Bilirubin,Total 0.2 mg/dL (0.2-1.3); Blood Urea Nitrogen 9 mg/dL (7-17); Calcium 9.4 mg/dL (8.4-10.2); Carbon Dioxide 26 mmol/L (22-30); Chloride 99 mmol/L (98-107); Estimated Glomerular Filt Rate > 60; Glucose 130 mg/dL (65-110); Prothrombin Time 12.5 Seconds (11.1-14.7); Sodium 138 mmol/L (137-145)
[2022-02-24 01:15] LABS: Partial Thromboplastin Time 32.4 SECONDS (22.3-36.8)
[2022-02-24 01:19] LABS: D Dimer 0.35 ug/mL (<0.48)
--- NOTE | 2022-02-24 01:53 | ED.EXTPRO ---
HPI - Extremity Problem General Chief complaint: Extremity Problem,Nontraumatic Stated complaint: COVID+ 02/20/22, left calf pain Time Seen by Provider: 02/24/22 00:40 Source: patient Mode of arrival: ambulatory Limitations: no limitations History of Present Illness HPI Narrative: This is a 41-year-old female that presents to the emergency department for left calf cramping noted last night. Reports she is currently COVID-positive. She was concerned she could possibly have a blood clot which prompted her to be seen. Denies erythema or edema of the leg. Related Data Allergies Allergy/AdvReac Type Severity Reaction Status Date / Time ethinyl estradiol Allergy Hives Verified 02/23/22 23:31 [From NuvaRing] etonogestrel [From NuvaRing] Allergy Hives Verified 02/23/22 23:31 Sulfa (Sulfonamide Allergy Anaphylaxis Verified 02/23/22 23:31 Antibiotics) Review of Systems Review of Systems: CONSTITUTIONAL: Denies fever CARDIOVASCULAR: Denies chest pain, or edema. RESPIRATORY: Denies dyspnea. MUSCULOSKELETAL: Reports myalgia. All systems reviewed & are unremarkable except as noted in HPI and below PMFSH Past Medical History Medical History GERD (gastroesophageal reflux disease) Healthy female adult Patient denies medical problems Surgical History Surgical History History of cholecystectomy Family History Family History Other Family history non-contributory Social History Social History Smoking status: Never smoker Exam Narrative: GENERAL: Well-appearing, well-nourished, and in no acute distress. HEAD: Normocephalic, atraumatic. EYES: PERRLA and EOMI. CHEST: Clear to auscultation. No respiratory distress. No wheezes rales or rhonchi HEART: Regular rate and rhythm. No murmur heard. Normal peripheral pulses. ABDOMEN: Soft, nontender, nondistended, normal active bowel sounds. EXTREMITIES: Normal range of motion. No edema, erythema or warmth. Normal DP pulse. Normal sensation SKIN: Warm, dry, no rash. NEURO: No focal deficits. Alert and oriented x3. PSYCH: Normal mood and affect Course Vital Signs Vital signs: Vital Signs Temperature 97.4 F L 02/23/22 23:29 Pulse Rate 107 H 02/23/22 23:29 Respiratory Rate 20 02/23/22 23:29 Blood Pressure 124/79 02/23/22 23:29 Pulse Oximetry 99 02/23/22 23:29 Oxygen Delivery Room Air 02/23/22 23:29 Temperature 97.4 F L 02/23/22 23:29 Pulse Rate 107 H 02/23/22 23:29 Respiratory Rate 20 02/23/22 23:29 Blood Pressure 100/72 02/24/22 01:00 Pulse Oximetry 97 02/24/22 01:00 Oxygen Delivery Room Air 02/23/22 23:29 MDM - Extremity (Nontraumatic) MDM Narrative Medical decision making narrative: Patient presents to the emergency department for left calf pain noted since last night. She is afebrile and nontoxic-appearing. No edema or erythema of the leg. Patient is currently COVID positive and was concerned for a possible blood clot. She denies any chest pain or shortness of breath. Her labs are consistent with concurrent COVID infection. Her D-dimer is not elevated. Due to her discomfort and currently being COVID-positive I will schedule her for an ultrasound in the morning. She is to follow-up with primary care doctor. She was given warnings to return to the ER Lab Data Attestation: I reviewed the patient's lab results. Result diagrams: 02/24/22 00:51 02/24/22 00:51 Labs: Lab Results 02/24/22 02/24/22 02/24/22 Range/Units 00:51 00:51 00:51 WBC 4.0 L (4.5-10.0) K/mm3 RBC 5.35 (4.2-5.4) M/mm3 Hgb 13.4 (12.0-15.0) g/dL Hct 41.5 (37.0-47.0) % MCV 77.6 L (80-100) fl MCH 25.0 L (26-34) pg MCHC 32.3 (32-36) g/dl RDW 14.3 (11.5-14.5)
== END 2022-02-24 02:33 | disposition home or self-care (01) ==
PROVIDERS: Emergency Provider Emergency Medicine
DX: U07.1 COVID-19 (principal); M79.662 Pain in left lower leg; K21.9 Gastro-esophageal reflux disease without esophagitis
CPT/HCPCS: 36415; 80053; 81003; 81025; 85025; 85380; 85610; 85730; 99283

== ENCOUNTER 2022-08-07 14:02 | Emergency (ER) | payer OTHER, SELFPAY ==
[2022-08-07 14:21] VITALS: BP 104/73; PULSE 111; RESP 18; TEMP 36.7; O2SAT 98
--- NOTE | 2022-08-07 14:25 | ED.URI ---
HPI - URI/Sore Throat General Chief Complaint: Upper Respiratory Infection Stated Complaint: cold/flu like symptoms Time Seen by Provider: 08/07/22 15:02 Source: patient and RN notes reviewed Mode of arrival: ambulatory Limitations: no limitations History of Present Illness HPI Narrative: 42-year-old female presents concern for fever, aches, cough, sore throat, nasal congestion rhinorrhea that started last night. She reports taking Tylenol without relief. She denies known sick contacts MD elicited complaint: fever, cough and sore throat Related Data Allergies Allergy/AdvReac Type Severity Reaction Status Date / Time Sulfa (Sulfonamide AdvReac Severe Anaphylaxis Verified 08/07/22 14:18 Antibiotics) ethinyl estradiol AdvReac Mild Hives Verified 08/07/22 14:18 [From NuvaRing] etonogestrel [From NuvaRing] AdvReac Mild Hives Verified 08/07/22 14:18 Review of Systems Review of Systems: CONSTITUTIONAL: Reports malaise, fever. EYES: Denies visual changes, redness, or discharge. ENT: Reports rhinorrhea, congestion, and sore throat. CARDIOVASCULAR: Denies chest pain, palpitations, or edema. RESPIRATORY: Reports cough. Denies dyspnea. GASTROINTESTINAL: Denies abdominal pain, nausea, vomiting, diarrhea SKIN: Denies rash or itching. MUSCULOSKELETAL: Reports myalgia. NEUROLOGIC: Denies headache. All systems reviewed & are unremarkable except as noted in HPI and below PMFSH Past Medical History Medical History GERD (gastroesophageal reflux disease) Healthy female adult Patient denies medical problems Surgical History Surgical History History of cholecystectomy Family History Family History Other Family history non-contributory Social History Social History Smoking status: Never smoker Comments At time of signature, agree with nursing past medical, surgical, social and family history. There is no relevant family history pertinent to the presenting complaint Exam Narrative: GENERAL: Nontoxic-appearing and in no acute distress. HEAD: Normocephalic EYES: PERRLA, conjunctivae clear ENT: Nares clear, turbinates edematous and erythematous, clear discharge. Mucous membranes moist. TM pearly gaxiola with sharp light reflex bilaterally; no tragal tenderness. Oropharynx not erythematous without lesions. Tonsils not enlarged and without exudate, no drooling, no hoarseness, no trismus, uvula midline. NECK: Supple. No lymphadenopathy CHEST: Clear to auscultation, breath sounds equal. No wheezing, rhonchi, rales, or stridor. No respiratory distress, speaks in full sentences. HEART: Regular rate and rhythm. No murmur heard. SKIN: Warm, dry, no rash. NEURO: Alert and oriented x3. PSYCH: Normal mood and affect Course Course Emergency Course: Patient is aware of diagnosis, understands and agrees to treatment plan. Anticipatory guidance given. Patient agrees to follow-up as directed and is aware of reasons to seek care at the emergency department. Portions of this record may have been created with voice recognition software Level of Care: Express Care Visit Vital Signs Vital signs: Vital Signs Temperature 98.0 F 08/07/22 14:21 Pulse Rate 111 H 08/07/22 14:21 Respiratory Rate 18 08/07/22 14:21 Blood Pressure 104/73 08/07/22 14:21 Pulse Oximetry 98 08/07/22 14:21 Oxygen Delivery Room Air 08/07/22 14:21 Temperature 98.0 F 08/07/22 14:21 Pulse Rate 111 H 08/07/22 14:21 Respiratory Rate 18 08/07/22 14:21 Blood Pressure 104/73 08/07/22 14:21 Pulse Oximetry 98 08/07/22 14:21 Oxygen Delivery Room Air 08/07/22 14:21 Reviewed. MDM - URI/Sore Throat MDM Narrative Medical decision making narrative: Differential diagnosis considered: Martinez virus, strep pharyngitis
== END 2022-08-07 15:12 | disposition home or self-care (01) ==
PROVIDERS: Emergency Provider Nurse Practitioner
DX: B34.9 Viral infection, unspecified (principal); Z20.822 Contact with and (suspected) exposure to COVID-19; K21.9 Gastro-esophageal reflux disease without esophagitis
CPT/HCPCS: 87081; 87426; 87804; 87880; 99213; C9803; G0463

== ENCOUNTER 2022-08-20 08:20 | Emergency (ER) | payer OTHER, SELFPAY ==
[2022-08-20 09:01] VITALS: BP 104/68; PULSE 99; RESP 18; TEMP 36.7; O2SAT 99
--- NOTE | 2022-08-20 09:08 | ED.URI ---
HPI - URI/Sore Throat General Chief Complaint: Upper Respiratory Infection Stated Complaint: sorethroat,cough,bilateral ear pain Time Seen by Provider: 08/20/22 08:55 Source: patient Mode of arrival: ambulatory Limitations: no limitations History of Present Illness HPI Narrative: Ms. Martinez is a 42-year-old female patient presenting to the clinic today with complaints of sore throat, cough, and bilateral ear pain. She reports she has had sore throat nasal congestion and cough x2 weeks however her symptoms did improve but now they have come back over the last few days. Reports that last night her throat was very sore as well as she started having bilateral ear pain. She denies any known fever or chills. Does have sinus pressure/headache MD elicited complaint: cough, sore throat, rhinorrhea, nasal congestion, sinus pain and other (Headache) Related Data Allergies Allergy/AdvReac Type Severity Reaction Status Date / Time Sulfa (Sulfonamide AdvReac Severe Anaphylaxis Verified 08/20/22 09:00 Antibiotics) ethinyl estradiol AdvReac Mild Hives Verified 08/20/22 09:00 [From NuvaRing] etonogestrel [From NuvaRing] AdvReac Mild Hives Verified 08/20/22 09:00 Review of Systems Review of Systems: Pertinent positives per HPI. Patient denies any fever, chills, rash, visual changes, dizziness, shortness of breath, chest pain, palpitations, nausea, vomiting, diarrhea, constipation, abdominal pain, or any urinary issues. [facility] Past Medical History Medical History GERD (gastroesophageal reflux disease) Healthy female adult Patient denies medical problems Surgical History Surgical History History of cholecystectomy Family History Family History Other Family history non-contributory Social History Social History Smoking status: Never smoker Comments At the time of my signature, I reviewed and agree with the nursing past medical, surgical, social, and family history. There is no relevant family history pertinent to the patient complaint. Exam Narrative: General: Well-developed, well nourished, in no apparent distress Head: Normocephalic, atraumatic Eyes: Pupils equally round and reactive to light bilaterally, EOM intact, sclera and conjunctive clear, no discharge, lids normal Ears: TMs intact, bulging, red, ear canals clear, no drainage, grossly hearing normal. Nose: Nares patent, clear nasal discharge, moderate inflammation, maxillary and frontal sinus tenderness. Mouth: Oral pharynx without lesions or masses, good dentition, MMM. Oropharynx red, postnasal drip Neck: Supple, trachea midline, mild enlargement of anterior cervical nodes, no thyroid masses or goiter palpable. Cardio: Regular rate and rhythm, s1 and s2 normal, no murmur appreciated. Resp: Clear to auscultation bilaterally, no rhonchi, rales, wheezing or rubs Course Course Emergency Course: Portions of this record may have been created with voice recognition software. Level of Care: Express Care Visit Vital Signs Vital signs: Vital Signs Temperature 36.7 C 08/20/22 09:01 Pulse Rate 99 08/20/22 09:01 Respiratory Rate 18 08/20/22 09:01 Blood Pressure 104/68 08/20/22 09:01 Pulse Oximetry 99 08/20/22 09:01 Oxygen Delivery Room Air 08/20/22 09:01 Temperature 36.7 C 08/20/22 09:01 Pulse Rate 99 08/20/22 09:01 Respiratory Rate 18 08/20/22 09:01 Blood Pressure 104/68 08/20/22 09:01 Pulse Oximetry 99 08/20/22 09:01 Oxygen Delivery Room Air 08/20/22 09:01 Vital signs reviewed MDM - URI/Sore Throat MDM Narrative Medical decision making narrative: At the time of visit patient is resting comfortably on the exam table. I suspect patient has bilateral otitis media with pharyngitis. Prescrip
== END 2022-08-20 09:15 | disposition home or self-care (01) ==
PROVIDERS: Emergency Provider Nurse Practitioner Family; PCP Family Medicine
DX: H66.93 Otitis media, unspecified, bilateral (principal); J02.9 Acute pharyngitis, unspecified; K21.9 Gastro-esophageal reflux disease without esophagitis
CPT/HCPCS: 99213; G0463

== ENCOUNTER 2023-01-25 09:19 | Emergency (ER) | payer OTHER, SELFPAY ==
--- NOTE | 2023-01-25 09:29 | ED.URI ---
HPI - URI/Sore Throat General Chief Complaint: Upper Respiratory Infection Stated Complaint: cough,congestion Time Seen by Provider: 01/25/23 09:29 Source: patient Mode of arrival: ambulatory Limitations: no limitations History of Present Illness HPI Narrative: Khadra is a 42-year-old female patient presenting to the clinic today with complaints of cough and congestion x1 day. She reports she has been somewhat short of breath over the past couple weeks. Does have a history of bronchitis. Denies any history of asthma or COPD. No fever or chills. Does have somewhat of a scratchy throat. Feels as though she has phlegm in her throat. States she was at a care home [facility] last week and her and her mother both developed a cough yesterday. MD elicited complaint: sore throat and nasal congestion Related Data Allergies Allergy/AdvReac Type Severity Reaction Status Date / Time Sulfa (Sulfonamide AdvReac Severe Anaphylaxis Verified 08/20/22 09:00 Antibiotics) ethinyl estradiol AdvReac Mild Hives Verified 08/20/22 09:00 [From NuvaRing] etonogestrel [From NuvaRing] AdvReac Mild Hives Verified 08/20/22 09:00 Review of Systems Review of Systems: Pertinent positives per HPI. Patient denies any fever, chills, rash, headache, visual changes, dizziness, chest pain, palpitations, nausea, vomiting, diarrhea, constipation, abdominal pain, or any urinary issues. PMFSH Past Medical History Medical History GERD (gastroesophageal reflux disease) Healthy female adult Patient denies medical problems Surgical History Surgical History History of cholecystectomy Family History Family History Other Family history non-contributory Social History Social History Smoking status: Never smoker Comments At the time of my signature, I reviewed and agree with the nursing past medical, surgical, social, and family history. There is no relevant family history pertinent to the patient complaint. Exam Narrative: General: Well-developed, well nourished, in no apparent distress Head: Normocephalic, atraumatic Eyes: Pupils equally round and reactive to light bilaterally, EOM intact, sclera and conjunctive clear, no discharge, lids normal Ears: TMs intact and congested, ear canals clear, no drainage, grossly hearing normal. Nose: Nares patent, clear nasal discharge, no inflammation, no sinus tenderness. Mouth: Oral pharynx without lesions or masses, good dentition, MMM. PND Neck: Supple, trachea midline, no enlargement of anterior or posterior cervical nodes, no thyroid masses or goiter palpable. Cardio: Regular rate and rhythm, s1 and s2 normal, no murmur appreciated. Resp: Clear to auscultation bilaterally, no rhonchi, rales, wheezing or rubs Course Course Emergency Course: Portions of this record may have been created with voice recognition software. Level of Care: Express Care Visit Vital Signs Vital signs: Vital signs reviewed MDM - URI/Sore Throat MDM Narrative Medical decision making narrative: At the time of visit patient is resting comfortably on the exam table. COVID testing was performed and was negative. I suspect patient has URI. Supportive measures were discussed with the patient she voiced understanding discharge instructions agrees to treatment plan. Patient is requesting an albuterol inhaler. Will send this and some steroid to the pharmacy to help with congestion. Differential Diagnosis Differential diagnosis: Likely upper respiratory infection, otitis media, sinusitis, viral infection, bronchitis, influenza, pharyngitis and other (COVID) Discharge Plan Discharge Clinical Impression: Upper respiratory infection Patient Disposition: Home, Self-Care
[2023-01-25 09:31] VITALS: BP 115/74; PULSE 100; RESP 16; TEMP 36.7; O2SAT 99
== END 2023-01-25 09:56 | disposition home or self-care (01) ==
PROVIDERS: Emergency Provider Nurse Practitioner Family
DX: J06.9 Acute upper respiratory infection, unspecified (principal); Z20.822 Contact with and (suspected) exposure to COVID-19; K21.9 Gastro-esophageal reflux disease without esophagitis
CPT/HCPCS: 87426; 99213; C9803; G0463

== ENCOUNTER 2023-02-03 19:14 | Emergency (ER) | payer OTHER, SELFPAY ==
[2023-02-03 19:28] VITALS: BP 106/70; PULSE 96; RESP 16; TEMP 36.6; O2SAT 99
--- NOTE | 2023-02-03 19:44 | ED.URI ---
HPI - URI/Sore Throat General Chief Complaint: Upper Respiratory Infection Stated Complaint: Congestion,Headache,Fatigue,Cough Source: patient Mode of arrival: ambulatory Limitations: no limitations History of Present Illness HPI Narrative: 42-year-old female presents to [facility] with complaints of 2 week history of sinus pressure, nasal congestion, bilateral ear pressure, cough, and runny nose. Patient has been taking [id number] DayQuil, Flonase, Motrin, NyQuil and Sudafed. Patient was evaluated here on January 25, diagnosed with an upper respiratory infection and was prescribed prednisone and albuterol that time. Patient reports that she did not take medications as prescribed MD elicited complaint: cough, rhinorrhea, nasal congestion and sinus pain Onset (ago): week(s) (2) Able to tolerate fluids by mouth: Yes Exacerbating factors: nothing Relieving factors: nothing Treatments prior to arrival: acetaminophen, ibuprofen and cold medicine Related Data Allergies Allergy/AdvReac Type Severity Reaction Status Date / Time Sulfa (Sulfonamide AdvReac Severe Anaphylaxis Verified 02/03/23 19:21 Antibiotics) ethinyl estradiol AdvReac Mild Hives Verified 02/03/23 19:21 [From NuvaRing] etonogestrel [From NuvaRing] AdvReac Mild Hives Verified 02/03/23 19:21 Review of Systems Constitutional: Constitutional: Reports chills, Reports fatigue, Denies fever(s) and Denies weakness ENT: Denies dizziness, Denies epistaxis, Reports nasal congestion and Reports sore throat Comments: Sinus pressure, bilateral ear pressure Cardiovascular: Cardiovascular: Denies chest pain Respiratory: Respiratory: Reports cough, Denies dyspnea and Denies wheezing Gastrointestinal: Gastrointestinal: Denies diarrhea, Denies nausea and Denies vomiting Integumentary/Breasts: Skin/Breast: Denies rash Neurologic: Denies syncope and Denies headache(s) [facility] Past Medical History Medical History GERD (gastroesophageal reflux disease) Healthy female adult Patient denies medical problems Surgical History Surgical History History of cholecystectomy Family History Family History Other Family history non-contributory Social History Social History Smoking status: Never smoker Comments At time of signature, I agree with nursing past medical, surgical, social and family history. There is no relevant family history pertinent to the presenting complaint. Exam Const: General: healthy appearing and no acute distress Nutritional Appearance: well nourished Orientation/consciousness: patient oriented x3 Limitations: no limitations HENMT: Head: normal to inspection Ears: external ears normal, TM's normal bilaterally and EAC's normal Face/Nose/Sinus: Normal external nose present Face and sinus: sinus tenderness frontal Mouth: Yes Normal oral and palatal mucosa present and Yes moist mucous membranes Throat: posterior oropharynx normal and uvula midline Other: Moderate nasal congestion noted Eyes: Conjunctivae: conjunctivae normal Neck: Neck: normal visual inspection Resp: Effort & Inspection: normal respiratory effort and not labored Auscultation: clear to auscultation bilaterally, no crackles, no rales and no rhonchi Cardio: Rate: regular rate Rhythm: regular rhythm Heart sounds: no murmurs Skin: General skin exam: normal color Rashes: no rashes Neuro: General: patient oriented x3 Speech: normal speech Gait exam (Neuro): Normal gait present Psych: Affect: normal affect Attitude: cooperative Course Course Level of Care: Express Care Visit Vital Signs Vital signs: Vital Signs Temperature 36.6 C 02/03/23 19:28 Pulse Rate 96 02/03/23 19:28 Respiratory Rate 16 02/03/23 19:28 Blood
== END 2023-02-03 20:00 | disposition home or self-care (01) ==
PROVIDERS: Emergency Provider Nurse Practitioner Family
DX: J01.10 Acute frontal sinusitis, unspecified (principal); K21.9 Gastro-esophageal reflux disease without esophagitis
CPT/HCPCS: 99213; G0463